=== PATIENT | male | born 2000 | race African-American/Black ===

== ENCOUNTER 2020-12-07 02:06 | Emergency (ER) | payer MEDICAID ==
[~2020-12-07] VITALS: Ht 198.1 cm; Wt 100.0 kg
[2020-12-07] MEDS ORDERED: FAMOTIDINE 20MG TABLET PO ONE (02:30)
[2020-12-07] MEDS ORDERED: DIPHENHYDRAMINE 25MG CAPSULE PO ONE (02:30)
[2020-12-07] MEDS ORDERED: PREDNISONE 20MG TABLET PO ONE (02:30)
[2020-12-07] MEDS ORDERED: P20 PO (03:16)
[2020-12-07 03:59] VITALS: BP 130/74
== END 2020-12-07 04:00 | disposition home or self-care (01) ==
LOC: ER 02:06
DX: T78.1XXA Other adverse food reactions, not elsewhere classified, initial encounter (principal); X58.XXXA Exposure to other specified factors, initial encounter; J45.909 Unspecified asthma, uncomplicated
CPT/HCPCS: 99284; J7512; Q0163

== ENCOUNTER 2022-10-15 07:57 | Emergency (ER) | payer MEDICAID, OTHER ==
[~2022-10-15 07:57] MED LIST: P20 PO
== END 2022-10-15 09:10 | disposition left against medical advice (07) ==
LOC: ER 07:57
DX: Z53.21 Procedure and treatment not carried out due to patient leaving prior to being seen by health care provider (principal)